=== PATIENT | male | born 1995 | race Asian ===

== ENCOUNTER 2017-04-19 13:08 | Emergency (ER) | payer OTHER ==
[~2017-04-19] VITALS: Ht 167.6 cm; Wt 74.8 kg
[2017-04-19 13:10] VITALS: BP 128/84; TEMP 98.1
[2017-04-19] MEDS ORDERED: ALBUTERO1 IN (13:25)
[2017-04-19 13:56] LABS: PLATELET COUNT 271 K/uL (142-355)
[2017-04-19 13:57] LABS: POTASSIUM 3.7 mmol/L (3.6-5.2); SODIUM 140 mmol/L (136-145)
== END 2017-04-19 14:23 | disposition short-term general hospital (02) ==
LOC: ED 13:08
DX: I21.09 ST elevation (STEMI) myocardial infarction involving other coronary artery of anterior wall (principal)
CPT/HCPCS: 36415; 80053; 82550; 84484; 85027; 86318; 93005; 96374; 96376; 99285; J1644; J2270

== ENCOUNTER 2017-04-19 14:29 | Outpatient (CLI) | payer OTHER ==
[~2017-04-19 14:29] MED LIST: ALBUTERO1 IN
== END 2017-04-19 15:00 | disposition short-term general hospital (02) ==
LOC: AMB 14:29
DX: I21.09 ST elevation (STEMI) myocardial infarction involving other coronary artery of anterior wall (principal)
CPT/HCPCS: A0425; A0427

== ENCOUNTER 2017-04-24 21:44 | Emergency (ER) | payer OTHER ==
[~2017-04-24] VITALS: Ht 167.6 cm; Wt 74.8 kg
[2017-04-24 22:16] LABS: PLATELET COUNT 405 K/uL (142-355)
[2017-04-24 23:01] VITALS: BP 110/66; TEMP 98.1
== END 2017-04-24 23:03 | disposition home or self-care (01) ==
LOC: ED 21:44
DX: D72.829 Elevated white blood cell count, unspecified (principal); J02.9 Acute pharyngitis, unspecified
CPT/HCPCS: 85027; 87081; 87880; 96372; 99282; J0696

== ENCOUNTER 2017-10-25 12:27 | Emergency (ER) | payer OTHER ==
[~2017-10-25] VITALS: Ht 165.1 cm; Wt 74.8 kg
[2017-10-25 14:38] VITALS: BP 112/78; TEMP 98.2
== END 2017-10-25 14:38 | disposition home or self-care (01) ==
LOC: ED 12:27
DX: N39.0 Urinary tract infection, site not specified (principal)
CPT/HCPCS: 81000; 87088; 87490; 87590; 99283